=== PATIENT | female | born 1955 | race Caucasian/White ===

== ENCOUNTER → 2018-03-09 16:37 | Outpatient (CLI) | payer OTHER, SELFPAY ==
[2018-03-09 17:15] LABS: Add Manual Diff / Slide Review NO; Basophils Percent Auto 0.9 % (0-2); Eosinophils Percent Auto 1.7 % (2-4); Hematocrit 42.4 % (36-46); Hemoglobin 14.3 g/dL (12.0-16.0); Lymphocytes Percent Auto 21.8 % (25-40); Mean Corpuscular HGB Conc 33.6 % (30-36); Mean Corpuscular Hemoglobin 30.8 PG (26-34); Mean Corpuscular Volume 91.6 fL (80-100); Monocytes Percent Auto 7.8 % (3-14); Neutrophils Absolute Auto 5300 /uL (3000-5900); Neutrophils Percent Auto 67.8 % (50-75); Platelet Count 287 X10^3/uL (150-400); Red Blood Cell Count 4.63 X10^6/uL (4.0-5.2); Red Cell Distribution Width 13.6 % (11.6-14.8); White Blood Cell Count 7.8 X10^3/uL (4.5-11.0)
[2018-03-09 17:45] LABS: Alanine Aminotransferase 35 IU/L (9-52); Albumin 4.3 g/dL (3.5-5.0); Albumin Globulin Ratio 1.9 (1.0-2.8); Alkaline Phosphatase 40 U/L (38-126); Aspartate Aminotransferase 42 IU/L (14-36); BUN Creatinine Ratio 27.5 (6-22); Bilirubin Total 0.4 mg/dL (0.2-1.3); Blood Urea Nitrogen 22 mg/dL (7-17); Calcium 9.3 mg/dL (8.4-10.2); Carbon Dioxide 32 mmol/L (22-32); Chloride 100 mmol/L (98-107); Estimated Glomerular Filt Rate > 60.0 mL/min (>60); Globulin 2.3 g/dL (1.7-4.1); Glucose 95 mg/dL (80-110); HEMOLYSIS < 15 (0-50); Potassium 4.6 mmol/L (3.4-5.1); Sodium 141 mmol/L (137-145); Total Protein 6.6 g/dL (6.3-8.2)
[2018-03-09 18:01] LABS: Free T3, Triiodothyronine Free 2.88 pg/mL (2.77-5.27); Free T4, Direct Thyroxine 1.56 ng/dL (0.78-2.19)
[2018-03-09 18:14] LABS: Thyroid Stimulating Hormone 0.47 uIU/mL (0.47-4.68)
== END ==
PROVIDERS: Nurse Practitioner Gerontology; Family Provider Family Medicine; PCP Family Medicine; Visit Provider Family Medicine
DX: C50.919 Malignant neoplasm of unspecified site of unspecified female breast (principal); E03.9 Hypothyroidism, unspecified
CPT/HCPCS: 80053; 84439; 84443; 84481; 85025

== ENCOUNTER → 2018-07-08 15:12 | Oncology outpatient (ONC) | payer OTHER, SELFPAY ==
--- NOTE | 2018-02-26 15:05 | ONC.SCHED ---
Patient wishes to schedule her labs and dexa with follow up in June as she is nearing her 5 year beny. Calendared end of May to schedule.
--- NOTE | 2018-04-03 11:00 | PC.NURSE ---
Triage note: pt called and requested refills on her Exemestane and Fosamax. She states her insurance has changed recently to [facility] and she needs her scripts called to a different pharmacy: [place] [facility] [facility] Home delivery phone [phone] and fax [phone]. Called [facility] pharmacy (where her current scripts are) and asked if there are any refills left on those scripts so that I can call into her new pharmacy. She doesn't have any refills left on either prescription. Pt was last seen here by [facility] She has never been seen by any of our providers here. Informed pt that she needs to come in to establish care with one of our new providers and get her refills at that time. She is agreeable and she was transferred to scheduling to make an appt.
[2018-07-08 15:40] VITALS: BP 133/79; PULSE 50; RESP 18; TEMP 36.9; O2SAT 94
--- NOTE | 2018-07-08 15:55 | ONC.PN ---
PN -Subjective Interval history: Diagnosis: Left breast cancer, T1c N0 ER/ID positive HER2 negative Previous treatment: 1. Lumpectomy and sentinel node biopsy May 2013 2. Adjuvant radiation finishing in July 2013 3. Hormone therapy initially with tamoxifen, followed by Femara and then switching to Aromasin. Interval history: The patient is a 62-year-old woman who returns today for follow-up of stage I breast cancer. Since her last visit here, she has been feeling generally well. She has been tolerating the Aromasin with some difficulty. She notes some pain and stiffness in the joints particularly in the hands. She does have occasional hot flashes. Her strength and energy level though been stable. She denies any shortness of breath or cough. Appetite has been good. She has not noted any changes in the breast or the axilla. She has been bothered by some sinus congestion and has an appointment later today with the walk-in clinic to evaluate for sinusitis. She denies any other changes in her health. Her medications include Fosamax levothyroxine B12 Aromasin Celexa aspirin Flonase Ventolin and vitamins - Patient Self-Reported Symptoms SR ears, nose, mouth, throat issues: Congestion, Cough Home Medications and Allergies Home Medications Medication Instructions Recorded Confirmed Type cholecalciferol (vitamin D3) 4,000 unit PO QDAY #0 06/05/12 03/13/18 History [Vitamin D3] [GLUCOSAMINE/CHONDRIO] #0 10/23/16 03/13/18 History [TURMERIC] #0 10/23/16 03/13/18 History calcium carbonate [Oyster Shell 500 mg PO #0 10/23/16 03/13/18 History Calcium 500] magnesium oxide 400 mg PO #0 10/23/16 03/13/18 History exemestane [Aromasin] 25 mg PO QDAY #30 tab 04/02/17 03/13/18 Rx hydrocortisone 1 [place] TOPICAL BID #1 tube 04/16/17 03/13/18 Rx hydrocortisone [Proctosol HC] 1 [place] ID PRN PRN #30 gm 04/16/17 Rx alendronate [Fosamax] 70 mg PO QWEEK #0 10/15/17 03/13/18 History escitalopram 20 mg tablet 20 mg PO QDAY #90 tab 03/26/18 Rx levothyroxine 200 mcg tablet 200 mcg PO DAILY #90 tab 03/27/18 Rx cyanocobalamin (vit B-12) 1,000 1,000 mcg IM SEE INSTRUCTIONS #10 05/18/18 Rx mcg/mL injection solution vial Allergies Allergy/AdvReac Type Severity Reaction Status Date / Time No Known Drug Allergies Allergy Verified 03/13/18 13:22 Exam - Constitutional positive no acute distress, positive average body habitus Results - Labs On July 01 her white count was 6.4 hemoglobin 13.4 hematocrit 41 platelets [id number]. Creatinine 0.88. - Imaging Additional studies: Procedures Excision of axillary lymph node (06/01/13) Laparoscopic supracervical hysterectomy [LSH] (03/09/12) Subtotal mastectomy (06/01/13) Assessment and Plan (1) Breast cancer Current visit: Yes Status: Acute 61-year-old woman with a history of stage I breast cancer. She has completed 5 years of adjuvant hormone therapy. She has tolerated was some difficulty and is anxious to stop. She will stop her Aromasin. I explained at this point that she needs to have annual mammogram and breast exam. She did have her radiation as part of a clinical trial and will continue to follow with her radiation oncologist. She also prefers to follow-up with her primary physician for breast exam and mammogram. I have not scheduled a follow-up appointment for her here but would be happy to see her again in the future should new questions or problems arise.
--- NOTE | 2018-07-08 16:00 | P.PNONC_ITS ---
PN -Subjective Interval history: Diagnosis: Left breast cancer, T1c N0 ER/CA positive HER2 negative Previous treatment: 1. Lumpectomy and sentinel node biopsy May 2013 2. Adjuvant radiation finishing in July 2013 3. Hormone therapy initially with tamoxifen, followed by Femara and then switching to Aromasin. Interval history: The patient is a 62-year-old woman who returns today for follow-up of stage I breast cancer. Since her last visit here, she has been feeling generally well. She has been tolerating the Aromasin with some difficulty. She notes some pain and stiffness in the joints particularly in the hands. She does have occasional hot flashes. Her strength and energy level though been stable. She denies any shortness of breath or cough. Appetite has been good. She has not noted any changes in the breast or the axilla. She has been bothered by some sinus congestion and has an appointment later today with the walk-in clinic to evaluate for sinusitis. She denies any other changes in her health. Her medications include Fosamax levothyroxine B12 Aromasin Celexa aspirin Flonase Ventolin and vitamins - Patient Self-Reported Symptoms SR ears, nose, mouth, throat issues: Congestion, Cough Home Medications and Allergies Home Medications Medication Instructions Recorded Confirmed Type cholecalciferol (vitamin D3) 4,000 unit PO QDAY #0 06/05/12 03/13/18 History [Vitamin D3] [GLUCOSAMINE/CHONDRIO] #0 10/23/16 03/13/18 History [TURMERIC] #0 10/23/16 03/13/18 History calcium carbonate [Oyster Shell 500 mg PO #0 10/23/16 03/13/18 History Calcium 500] magnesium oxide 400 mg PO #0 10/23/16 03/13/18 History exemestane [Aromasin] 25 mg PO QDAY #30 tab 04/02/17 03/13/18 Rx hydrocortisone 1 [place] TOPICAL BID #1 tube 04/16/17 03/13/18 Rx hydrocortisone [Proctosol HC] 1 [place] CA PRN PRN #30 gm 04/16/17 Rx alendronate [Fosamax] 70 mg PO QWEEK #0 10/15/17 03/13/18 History escitalopram 20 mg tablet 20 mg PO QDAY #90 tab 03/26/18 Rx levothyroxine 200 mcg tablet 200 mcg PO DAILY #90 tab 03/27/18 Rx cyanocobalamin (vit B-12) 1,000 1,000 mcg IM SEE INSTRUCTIONS #10 05/18/18 Rx mcg/mL injection solution vial Allergies Allergy/AdvReac Type Severity Reaction Status Date / Time No Known Drug Allergies Allergy Verified 03/13/18 13:22 Exam - Constitutional positive no acute distress, positive average body habitus Results - Labs On July 01 her white count was 6.4 hemoglobin 13.4 hematocrit 41 platelets [id number]. Creatinine 0.88. - Imaging Additional studies: Procedures Excision of axillary lymph node (06/01/13) Laparoscopic supracervical hysterectomy [LSH] (03/09/12) Subtotal mastectomy (06/01/13) Assessment and Plan (1) Breast cancer Current visit: Yes Status: Acute 61-year-old woman with a history of stage I breast cancer. She has completed 5 years of adjuvant hormone therapy. She has tolerated was some difficulty and is anxious to stop. She will stop her Aromasin. I explained at this point that she needs to have annual mammogram and breast exam. She did have her radiation as part of a clinical trial and will continue to follow with her radiation oncologist. She also prefers to follow-up with her primary physician for breast exam and mammogram. I have not scheduled a follow-up appointment for her here but would be happy to see her again in the future should new questions or problems arise.
== END ==
LOC: ONC 15:14
PROVIDERS: Family Provider Family Medicine; PCP Family Medicine; Visit Provider Nurse Practitioner Gerontology
DX: Z79.811 Long term (current) use of aromatase inhibitors (principal)
CPT/HCPCS: 99213

== ENCOUNTER → 2019-04-19 13:28 | Outpatient (CLI) | payer OTHER, SELFPAY ==
--- NOTE | 2019-04-19 13:30 | DI.MG.S_ITS ---
BILATERAL DIGITAL SCREENING MAMMOGRAM 3D/2D WITH CAD: 04/19/2019 CLINICAL: Routine screening. Personal history of breast cancer. Family history of breast cancer. Comparison is made to exams dated: 09/05/2017 mammogram, 08/30/2016 mammogram, 08/16/2016 mammogram, 08/11/2015 mammogram, and 08/04/2015 mammogram - [facility]. The tissue of both breasts is heterogeneously dense. This may lower the sensitivity of mammography. Current study was also evaluated with a Computer Aided Detection (CAD) system. There are benign calcifications in the right breast. There also are benign post operative findings in the left breast. No significant masses, calcifications, or other findings are seen in either breast. There has been no significant interval change. IMPRESSION: There is no mammographic evidence of malignancy. A 1 year screening mammogram is recommended. This exam was interpreted at Station ID: [id number]. NOTE: For mammograms, a report in lay terms will be sent to the patient. Approximately 15% of breast malignancies will not be visualized mammographically. In the management of a palpable breast mass, a negative mammogram must not discourage biopsy of a clinically suspicious lesion. Electronically Signed By: Abdoulaye subramanian/jayla:04/19/2019 17:08:59 letter sent: Normal Exam ACR BI-RADS Category 2: Benign Finding(s) 3342F
[2019-04-19 14:45] LABS: Free T3, Triiodothyronine Free 3.05 pg/mL (2.77-5.27); Free T4, Direct Thyroxine 1.77 ng/dL (0.78-2.19)
[2019-04-19 14:59] LABS: Thyroid Stimulating Hormone 0.11 uIU/mL (0.47-4.68)
== END ==
PROVIDERS: PCP Family Medicine; Visit Provider Family Medicine
DX: Z12.31 Encounter for screening mammogram for malignant neoplasm of breast (principal); Z85.3 Personal history of malignant neoplasm of breast; Z80.3 Family history of malignant neoplasm of breast; M85.852 Other specified disorders of bone density and structure, left thigh; Z78.0 Asymptomatic menopausal state; E03.9 Hypothyroidism, unspecified; Z92.21 Personal history of antineoplastic chemotherapy
CPT/HCPCS: 36415; 77063; 77067; 77080; 84439; 84443; 84481

== ENCOUNTER → 2020-03-07 08:13 | Outpatient (CLI) | payer OTHER, SELFPAY ==
[2020-03-07 09:59] LABS: Alanine Aminotransferase 23 IU/L (<35); Albumin 4.4 g/dL (3.5-5.0); Albumin Globulin Ratio 1.8 (1.0-2.8); Alkaline Phosphatase 50 U/L (38-126); Aspartate Aminotransferase 35 IU/L (14-36); BUN Creatinine Ratio 20.3 (6-22); Bilirubin Total 0.6 mg/dL (0.2-1.3); Blood Urea Nitrogen 15 mg/dL (7-17); Calcium 9.4 mg/dL (8.4-10.2); Carbon Dioxide 29 mmol/L (22-32); Chloride 105 mmol/L (98-107); Cholesterol 174 mg/dL (140-199); Estimated Glomerular Filt Rate > 60.0 mL/min (>60); Globulin 2.5 g/dL (1.7-4.1); Glucose 85 mg/dL (80-110); HDL Cholesterol 67 mg/dL (40-60); HEMOLYSIS < 15 (0-50); LDL Cholesterol Calculated 97 mg/dL (<100); Potassium 4.4 mmol/L (3.4-5.1); Sodium 138 mmol/L (137-145); Total Protein 6.9 g/dL (6.3-8.2); Triglycerides 48 mg/dL (35-150)
[2020-03-07 10:29] LABS: Free T3, Triiodothyronine Free 3.24 pg/mL (2.77-5.27); Free T4, Direct Thyroxine 1.95 ng/dL (0.78-2.19)
[2020-03-07 10:42] LABS: Thyroid Stimulating Hormone 0.155 uIU/mL (0.47-4.68)
== END ==
PROVIDERS: PCP Family Medicine; Referring Provider Family Medicine; Visit Provider Family Medicine
DX: E03.9 Hypothyroidism, unspecified (principal); M85.80 Other specified disorders of bone density and structure, unspecified site
CPT/HCPCS: 36415; 80053; 80061; 82306; 84439; 84443; 84481

== ENCOUNTER → 2020-03-29 09:27 | Outpatient (CLI) | payer OTHER, SELFPAY ==
--- NOTE | 2020-03-29 09:50 | DI.MG.S_ITS ---
Patient Name: MONICA AZUL date: 1955 Sex: F Attending Physician: Otto Indications: Date: 03/29/2020 09:33 At the request of: LAYNE GIRALDO Procedure: MM diagnostic mammo BI BILATERAL DIGITAL DIAGNOSTIC MAMMOGRAM 3D/2D POST LUMPECTOMY: 03/29/2020 CLINICAL: Left breast mass. Comparison is made to exams dated: 04/19/2019 mammogram, 09/05/2017 mammogram, 08/30/2016 mammogram, 08/16/2016 mammogram, and 08/11/2015 mammogram - [facility]. The tissue of both breasts is heterogeneously dense. This may lower the sensitivity of mammography. There are benign calcifications in the right breast. There also are benign post operative findings in the left breast. No significant masses, calcifications, or other findings are seen in either breast. IMPRESSION: INCOMPLETE: NEEDS ADDITIONAL IMAGING EVALUATION There is no mammographic abnormality seen in the left breast to correspond with the palpable abnormality, however, targeted ultrasound of the left breast is recommended and will be performed immediately following this exam. This exam was interpreted at Station ID: [id number]. NOTE: For mammograms, a report in lay terms will be sent to the patient. Approximately 15% of breast malignancies will not be visualized mammographically. In the management of a palpable breast mass, a negative mammogram must not discourage biopsy of a clinically suspicious lesion. Electronically Signed By: Aisha Nelson M.D. lk/:03/29/2020 10:07:53 Continued Report - Page 2 of 2 Patient Name: MONICA AZUL date: 1955 Sex: F Attending Physician: Otto Indications: Date: 03/29/2020 09:33 At the request of: LAYNE GIRALDO Procedure: MM diagnostic mammo BI ACR BI-RADS Category 0: Incomplete 3340F
--- NOTE | 2020-03-29 10:13 | DI.US.S_ITS ---
Patient Name: MONICA AZUL date: 1955 Sex: F Attending Physician: Otto Indications: Date: 03/29/2020 10:08 At the request of: LAYNE GIRALDO Procedure: US breast LT limited ULTRASOUND OF LEFT BREAST: 03/29/2020 CLINICAL: Palpable left breast lump. Comparison is made to exams dated: 03/29/2020 mammogram, 04/19/2019 mammogram, 09/05/2017 mammogram, 08/30/2016 ultrasound, 08/30/2016 mammogram, and 08/16/2016 mammogram - [facility]. Ultrasound of the left breast was performed on the area of interest. Potetr scale images of the real-time examination were reviewed. IMPRESSION: NEGATIVE There is no sonographic evidence of malignancy. There is no mammographic or sonographic abnormality seen in the left breast to correspond with the palpable abnormality, however, clinical followup is recommended. A 1 year screening mammogram is recommended. This exam was interpreted at Station ID: [id number]. Electronically Signed By: Aisha coombs/:03/29/2020 11:33:44 letter sent: Clinical Evaluation Ultrasound BI-RADS: 1 Negative
== END ==
PROVIDERS: PCP Family Medicine; Referring Provider Family Medicine; Visit Provider Family Medicine
DX: R92.8 Other abnormal and inconclusive findings on diagnostic imaging of breast (principal); N63.20 Unspecified lump in the left breast, unspecified quadrant
CPT/HCPCS: 76642; 77066; G0279

== ENCOUNTER → 2020-04-04 08:52 | Outpatient (CLI) | payer OTHER, SELFPAY ==
[2020-04-05 19:25] LABS: COVID19 Sendout Not Detected (Not Detect)
== END ==
PROVIDERS: PCP Family Medicine; Visit Provider Physician Assistant
DX: Z11.59 Encounter for screening for other viral diseases (principal)
CPT/HCPCS: 87635

== ENCOUNTER 2020-04-07 06:44 | Day surgery (SDC) | payer OTHER, SELFPAY ==
[2020-04-07 07:12] VITALS: BP 116/62; PULSE 43; RESP 15; TEMP 36.2; O2SAT 98; BMI 26.6
[2020-04-07] MEDS: SODIUM CHLORIDE 0.9% 1,000 ML 200 ML IV (07:26)
--- NOTE | 2020-04-07 07:45 | PM.HP.1 ---
History of Present Illness History of Present Illness Date Patient Seen: 04/07/20 Time Patient Seen: 07:[address] [facility] Narrative: This is a 64 year old woman with history of colonoscopy 10 years ago. Since then she has not had any new symptoms such as melena, hematochezia, unexplained weight loss, or unexplained abdominal pain. She denies any family history of polyps or colon cancers. She has a history of asthma, hypothyroidism, breast cancer, hysterectomy lumpectomy. ROS Thirteen system review is otherwise negative other than as mentioned below and in HPI. PE: GENERAL: Well groomed and cooperative. Appears stated age. Answers questions promptly and appropriately. Vital signs noted. HENT: Normocephalic, atraumatic. Hearing intact. EYES: Conjunctiva pink, sclera white, no periorbital swelling. CARDIOVASCULAR: Regular rate. No pedal edema. RESPIRATORY: Non-tachypneic, breathing comfortably on room air. GASTROINTESTINAL: Abdomen soft and non-distended GENITALURINARY: No flank tenderness. MUSCULOSKELETAL: Equal tone and mass bilaterally. SKIN: Warm, dry, soft, appropriate color for ethnicity. No other lesions, rashes, or wounds. NEURO: Alert and Oriented X 3. No gross sensory deficits, or cognitive issues. PSYCH: Appropriate affect and mood. Patient History Medical History Arm fracture (Resolved 11/28/15) Breast cancer (Resolved 2012) Chicken pox (Resolved) Depression (Chronic 2012) Eczema (Chronic 2011) History of heavy periods (Resolved 2009) Hypothyroidism (Chronic 1994) Infertility (Resolved 1983) Measles (Resolved) Mumps (Resolved) Surgical History History of surgery on arm (Resolved 11/28/15) History of tonsillectomy (Resolved 1962) Status post breast lumpectomy (Resolved 05/2013) Status post laparoscopic supracervical hysterectomy (Resolved 2011) Family & Social History Family History Father Bladder cancer Diabetes mellitus Heart disease High cholesterol Grandfather Lung cancer Grandmother Stroke Mother Age: 88 Dementia Grandfather Heart disease Sister Diabetes mellitus Brother No problems noted. Mother No problems noted. Sister Diabetes mellitus Neurosarcoidosis Social History: household members spouse Tobacco & Substance use: Smoking Status Never smoker alcohol intake current alcohol intake frequency holiday/special occasion Substance Use Type does not use Meds Home Medications and Allergies Home Medications Medication Instructions Recorded Confirmed Type cholecalciferol (vitamin D3) 4,000 unit PO QDAY #0 06/05/12 04/07/20 History [Vitamin D3] calcium carbonate [Oyster Shell 500 mg PO DAILY #0 10/23/16 04/07/20 History Calcium 500] glucosamine sulfate [Glucosamine] 1,000 mg PO DAILY #0 10/23/16 04/07/20 History magnesium oxide 400 mg PO DAILY #0 10/23/16 04/07/20 History turmeric 400 mg PO DAILY #0 10/23/16 04/07/20 History alendronate 70 mg tablet 70 mg PO QWEEK #4 tab 02/16/20 04/07/20 Rx escitalopram oxalate 20 mg tablet See Rx Instructions .ROUTE 02/23/20 04/07/20 Rx .COMPLEX #90 tablet cyanocobalamin (vitamin B-12) 1,000 mcg IM .COMPLEX #10 vial 02/24/20 04/07/20 Rx 1,000 mcg/mL injection solution levothyroxine 88 mcg tablet 88 mcg PO DAILY #60 tab 03/08/20 04/07/20 Rx hydrocortisone 1 [place] TOPICAL BID PRN 04/07/20 04/07/20 History levothyroxine [Levoxyl] 100 mcg PO ONCE 04/07/20 04/07/20 History Allergies Allergy/AdvReac Type Severity Reaction Status Date / Time No Known Drug Allergies Allergy Verified 04/07/20 07:06 Exam Vital Signs (past 8 hours): - 04/07/20 07:12 Temperature 97.1 F L Pulse Rate 43 L Respiratory Rate 15 Blood Pressure 116/62 Pulse Oximetry 98 Oxygen Delivery Method Room Air Assessment & Plan Assessment and plan (1) At average risk for colon cancer: Status: Acute Assessment & Plan narrative: Risks and benefits of screening colonoscopy and possible polypectomy were discussed with the patient including risk of bleeding, perforation, need for additional procedures, risks of anesthesia. The patient desires to proceed with the colonoscopy procedure. COVID-19 COVID-19 status: Negative Result date/Date tested (Pos, Neg/Pending): 04/04/20 Time Spent With Patient Time with patient: 15-24 minutes Quality VTE Deep Vein Thrombosis/Pulmonary Embolism Present on Admission: No
[2020-04-07] MEDS: MIDAZOLAM 5 MG/5 ML VIAL IV ×2 (07:50→07:51)
[2020-04-07] MEDS: fentaNYL 250 MCG/5 ML INJ IV (07:50)
--- NOTE | 2020-04-07 08:12 | PM.OP.ENDO ---
Operative Date/Time/Diagnoses Date of procedure: 04/07/20 Time of procedure: 08:12 Pre-op diagnosis: Average risk for colon cancer Post-op diagnosis: other (Normal colon, external hemorrhoid remnant tags) Procedure & Clinicians Study performed: Colonoscopy Procedural sedation performed by the endoscopist Indications: Average risk for colon cancer, 10 years since last colonoscopy Surgeon: Kandis Brennan Procedure Notes SCOAP/Timeout: Performed Procedure in detail: The patient was brought to the room and placed in left lateral decubitus position with all bony prominences padded. A time-out was performed and then the patient was given procedural sedation starting with 2 mg of Versed and 100 mcg of fentanyl. Vitals were monitored throughout the procedure and remained stable. Once adequately sedated, the procedure was begun. A rectal exam was performed revealing external hemorrhoid remnant tags, with no inflammation, thrombosis, or bleeding. The colonoscope was then introduced to the rectum and advanced to the cecum in the usual fashion. The cecum was identified by the appendiceal orifice, the mucosal tri-fold, and the ileocecal valve. The scope was then retracted while rotating side to side and examining each mucosal fold. At the conclusion of the procedure retroflexion was performed and small grade 1-2 internal hemorrhoids without stigmata of bleeding were seen. The scope was then withdrawn from the rectum the procedure was concluded. The patient tolerated the procedure well and was transferred to the PACU in stable condition. Scope withdrawal time: 8 Sedation minutes: 22 Findings: other findings (External hemorrhoid remnant tags which were not inflamed, thrombosed, bleeding) Specimen(s): none sent Complications: none Impression: Normal colon, adequate prep Post-procedure Recommendations: Colonscopy in 10 years Follow up: as needed Disposition: PACU
[2020-04-07 08:17] VITALS: BP 100/52; PULSE 45; RESP 16; TEMP 36.3; O2SAT 96
[2020-04-07 08:22] VITALS: BP 87/46; PULSE 40; RESP 10; O2SAT 95
[2020-04-07 08:26] VITALS: BP 102/59; PULSE 40; RESP 15; TEMP 36.7; O2SAT 97
[2020-04-07 08:30] VITALS: BP 110/55; PULSE 46; RESP 17; TEMP 36.2; O2SAT 99
--- NOTE | 2020-04-07 08:41 | SUR.PHASEII ---
Pt resting heart rate baseline. pt asymptomatic at this time.
== END 2020-04-07 08:42 | disposition home or self-care (01) ==
PROVIDERS: PCP Family Medicine; Referring Provider Surgery; Visit Provider Surgery
PROC: 0DJD8ZZ Inspection of Lower Intestinal Tract, Via Natural or Artificial Opening Endoscopic (ICD-10-PCS; CPT 45378; principal; 2020-04-07 07:45)
DX: Z12.11 Encounter for screening for malignant neoplasm of colon (principal); K64.0 First degree hemorrhoids; K64.4 Residual hemorrhoidal skin tags
CPT/HCPCS: 45378; 99152; J2250; J3010